=== PATIENT | female | born 2000 | race African-American/Black ===

== ENCOUNTER 2023-11-29 14:40 | Emergency (ER) | payer OTHER, SELFPAY ==
[2023-11-29 14:52] VITALS: BP 128/88; PULSE 100; RESP 19; TEMP 36.2; O2SAT 100
--- NOTE | 2023-11-29 15:44 | ED.FEMALEGU ---
HPI - Female Genitourinary General Chief complaint: Vaginal Bleeding Stated complaint: , vag bleed Time Seen by Provider: 11/29/23 14:59 History of Present Illness HPI Narrative: 23-year-old female, is currently but unsure gestational age reports for evaluation for vaginal bleeding. Patient states she had a positive test 7 days ago while she was in care home. States she began having vaginal bleeding 2 days ago and went to [facility] emergency department. She reports that she had blood drawn him was told that again she was , however her hCG levels were not high enough to obtain a ultrasound. She states she was not tested for STDs but was treated for STDs at that time. States she was told to be evaluated at another ED if her vaginal bleeding continues which prompted her to come to this ER. She is asking to be tested for STDs today, however she does not believe she has an STD. She reports abdominal cramping that has since resolved. Patient states she is having to change her pad or tampon 1-2 times per day. Her LMP was 11/11/2023. She reports occasional marijuana alcohol use, however has not had alcohol since she found out she is . She reports nausea and vomiting intermittently, she is currently nauseous. Denies fever, current abdominal pain, chest pain or shortness of breath, lightheadedness or syncope. she denies dysuria but does report urinary frequency. 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 Related Data Allergies Allergy/AdvReac Type Severity Reaction Status Date / Time No Known Allergies Allergy Verified 11/29/23 16:12 Review of Systems Review of Systems: CONSTITUTIONAL: Denies fever, chills, or sweats. EYES: Denies visual changes, redness, or discharge. ENT: Denies rhinorrhea, congestion, sore throat, or otalgia. CARDIOVASCULAR: Denies chest pain, palpitations, or edema. RESPIRATORY: Denies cough or dyspnea. GASTROINTESTINAL: See HPI GENITOURINARY: See HPI SKIN: Denies rash or itching. MUSCULOSKELETAL: Denies back pain, joint pain, or myalgia. NEUROLOGIC: Denies headache, numbness, or weakness. PSYCHIATRIC: Denies anxiety or depression. Exam Narrative: GENERAL: Well-appearing, well-nourished, and in no acute distress. Patient resting comfortably in exam bed. She is pleasant and conversational. HEAD: Normocephalic, atraumatic. EYES: PERRLA and EOMI. ENT: Nares clear, no rhinorrhea or epistaxis. Mucous membranes moist. NECK: Supple. CHEST: Clear to auscultation. No respiratory distress. HEART: Regular rate and rhythm. No murmur heard. Normal peripheral pulses. ABDOMEN: Soft, nontender, nondistended, normal active bowel sounds. No CVA tenderness. No guarding, rebound or rigidity. : NO external, vaginal canal or cervical lesions. Vaginal vault with mild amount of blood. No tissue or large clots. Cervical os mildly opened. No CMT. Tenderness to the suprapubic region on exam, no adnexal tenderness. EXTREMITIES: Normal range of motion. No edema. SKIN: Warm, dry, no rash. NEURO: No focal deficits. Alert and oriented x3 Course Vital Signs Vital signs: Vital Signs Temperature 97.2 F L 11/29/23 14:52 Pulse Rate 100 11/29/23 14:52 Respiratory Rate 19 11/29/23 14:52 Blood Pressure 128/88 11/29/23 14:52 Pulse Oximetry 100 11/29/23 14:52 Oxygen Delivery Room Air 11/29/23 14:52 Temperature 97.2 F L 11/29/23 14:52 Pulse Rate 100 11/29/23 14:52 Respiratory Rate 19 11/29/23 14:52 Blood Pressure 128/88 11/29/23 14:52 Pulse Oximetry 100 11/29/23 14:52 Oxygen Delivery Room Air 11/29/23 14:52 MDM - Female Genitourinary MDM Narrative Medical decision making narrative: 23-year-old female, , currently , LMP 11/11/2023 reports for evaluation for vaginal bleeding x2 days. See HPI for further history. Vitals are stable and she is afebrile. She is only having to change her pad or tampon 1-2 times per d
[2023-11-29] MEDS: Please add drug allergy info to patient profile. 1 EACH XX (16:14)
[2023-11-29] MEDS: SODIUM CHLORIDE 0.9% IV 1,000 ML 999 ML IV CONT (16:14)
[2023-11-29 16:27] LABS: Basophils Percent Auto 0.7 % (0.2-1.2); Eosinophils Absolute Auto 0.1 K/mm3 (0-0.3); Eosinophils Percent Auto 2.4 % (0-4.4); Hematocrit 36.9 % (37.0-47.0); Hemoglobin 12.2 g/dL (12.0-15.0); Immature Granulocyte Absolute 0.01 K/mm3 (0.00-0.031); Immature Granulocyte Percent A 0.2 % (0-0.5); Lymphocytes Absolute Auto 1.39 K/mm3 (0.9-3.2); Lymphocytes Percent Auto 33.8 % (18.3-44.2); Mean Corpuscular HGB Conc 33.1 g/dl (32-36); Mean Corpuscular Hemoglobin 31.4 pg (26-34); Mean Corpuscular Volume 95.1 fl (80-100); Mean Platelet Volume 9.9 fl (7.4-10.4); Monocytes Absolute Auto 0.3 K/mm3 (0.1-0.6); Monocytes Percent Auto 6.6 % (2.6-8.5); Neutrophils Absolute Auto 2.3 K/mm3 (1.3-6.7); Neutrophils Percent Auto 56.3 % (45.5-73.1); Platelet Count Result 259 k/mm3 (150-375); Red Blood Count 3.88 M/mm3 (4.2-5.4); Red Cell Distribution Width 13.1 % (11.5-14.5); White Blood Count 4.1 K/mm3 (4.5-10.0)
[2023-11-29 16:34] LABS: Appearance Urine Clear (Clear); Bacteria Urine None Seen /hpf; Bilirubin Urine Negative (Negative); Blood Urine 2+ (Negative); Color Urine Yellow (Yellow); Glucose Urine UA Negative (Negative); Ketones Urine Negative (Negative); Leukocyte Esterase Ur Negative LEU/UL (Negative); Nitrate Urine Negative (Negative); Non Pathogenic Casts 0-2; Protein Urine Negative (Negative); RBC Urine 0-2 /hpf (0-2); Specific Grav Ur 1.019 (1.001-1.035); Squamous Epithelial Cell Urine Occasional /hpf (Few); Urobilinogen Urine 0.2 mg/dL (<2.0); WBC Urine 0-5 /hpf
[2023-11-29 16:37] LABS: Add Urine Microscopic? YES
[2023-11-29 16:39] LABS: Alanine Aminotransferase 52 U/L (6-35); Albumin Level 4.1 g/dL (3.5-5.1); Alkaline Phosphatase 62 U/L (38-126); Anion Gap 9 mmol/L (8-16); Aspartate Amino Transferase 38 U/L (14-36); Bilirubin,Total 0.3 mg/dL (0.2-1.3); Blood Urea Nitrogen 8 mg/dL (7-17); Calcium 9.2 mg/dL (8.4-10.2); Carbon Dioxide 23 mmol/L (22-30); Chloride 107 mmol/L (98-107); Estimated CRCL calculation 89 ml/min; Estimated Glomerular Filt Rate > 60; Glucose 100 mg/dL (65-110); Sodium 139 mmol/L (137-145)
[2023-11-29 16:40] LABS: INR 0.9; Prothrombin Time 12.8 Seconds (11.1-14.7)
[2023-11-29 16:41] LABS: Partial Thromboplastin Time 28.5 SECONDS (22.3-36.8)
[2023-11-29 16:56] LABS: Beta HCG Quantitative 24.91 mIU/ML
[2023-11-29 17:54] LABS: Trichomonas Vag PCR NOT DETECTED (NOT DETECTE)
[2023-11-29 18:17] LABS: Chlamydia trachomatis NOT DETECTED (NOT DETECTE); Neisseria gonorrhoeae PCR NOT DETECTED (NOT DETECTE)
--- NOTE | 2023-11-29 18:53 | PC.NURSE ---
Called chem, made aware of Lipase needed for this pt.
--- NOTE | 2023-11-29 19:08 | PC.NURSE ---
called lab, made aware of add Lipase was ordered.
[2023-11-29 19:21] LABS: Lipase 143 U/L (23-300)
[2023-11-29 19:39] VITALS: BP 120/76; PULSE 88; RESP 16; TEMP 36.6; O2SAT 99
== END 2023-11-29 19:40 | disposition home or self-care (01) ==
PROVIDERS: Emergency Medicine; Emergency Provider Physician Assistant
DX: O03.4 Incomplete spontaneous abortion without complication (principal)
CPT/HCPCS: 36415; 80053; 81001; 83690; 84702; 85025; 85461; 85610; 85730; 86850; 86900; 86901; 87491; 87591; 87661; 96360; 99284; J7030